=== PATIENT | male | born 1940 | race African-American/Black ===

== ENCOUNTER 2016-07-24 08:11 | Outpatient (CLI) | payer MEDICARE ==
[2016-07-24 12:23] LABS: Hemoglobin A1c 6.7 % (4.0-6.0)
== END 2016-07-24 08:12 ==
LOC: NAVSJIPCSP 08:11
PROVIDERS: ATTEND Internal Medicine
DX: E11.29 Type 2 diabetes mellitus with other diabetic kidney complication (principal); I11.9 Hypertensive heart disease without heart failure; Z79.899 Other long term (current) drug therapy
CPT/HCPCS: 36415; 80061; 83036

== ENCOUNTER 2016-11-04 07:52 | Outpatient (CLI) | payer MEDICARE ==
[2016-11-04 12:53] LABS: Anion Gap 18 mmol/L (10-20); BUN (Urea Nitrogen) 36 mg/dL (8.4-25.7); Calc. Creatinine Clearance 0 mL/min (70-130); Calcium 9.5 mg/dL (7.8-10.44); Carbon Dioxide 19 mmol/L (23-31); Cardiac Risk 2.7 (Less than 4.5); Chloride 109 mmol/L (98-107); Cholesterol 167 mg/dl (< 200 Desired); Estimated GFR-MDRD 52; Glucose 124 mg/dL (83-110); HDL Cholesterol 63 mg/dL (>60 Neg Risk); LDL Cholesterol, Calculated 87 mg/dL; Potassium 4.5 mmol/L (3.5-5.1); Sodium 141 mmol/L (136-145); Triglycerides 83 mg/dL (Less than 150)
[2016-11-04 13:20] LABS: Bilirubin Negative (Negative); Blood, Urine Negative (Negative); Clarity Clear (Clear); Glucose, Urine (Dipstick) Negative (Negative); Leukocyte Negative (Negative); Nitrite Negative (Negative); Protein, Urine (Dipstick) 30 mg/dL (Neg-Trace); Specific Gravity, Urine 1.015 (1.005-1.030); Urobilinogen 0.2 mg/dL (0.2-1.0); pH, Urine 5.5 (5.0-9.0)
[2016-11-04 14:11] LABS: Hemoglobin A1c 6.7 % (4.0-6.0)
[2016-11-04 22:09] LABS: Crystals/HPF RARE URIC ACID HPF (Negative); Squamous Epithelial 0-3 HPF (0-3)
== END 2016-11-04 07:53 ==
LOC: NAVSJIPCSP 07:52
PROVIDERS: ATTEND Urology
DX: Z12.5 Encounter for screening for malignant neoplasm of prostate (principal); C67.9 Malignant neoplasm of bladder, unspecified; N40.1 Benign prostatic hyperplasia with lower urinary tract symptoms; E78.5 Hyperlipidemia, unspecified; E11.29 Type 2 diabetes mellitus with other diabetic kidney complication
CPT/HCPCS: 36415; 80048; 80061; 81001; 83036; 87086; G0103

== ENCOUNTER 2017-02-04 08:44 | Outpatient (CLI) | payer MEDICARE ==
[2017-02-04 12:39] LABS: Hemoglobin A1c 6.7 % (4.0-6.0)
[2017-02-04 12:57] LABS: Anion Gap 17 mmol/L (10-20); BUN (Urea Nitrogen) 22 mg/dL (8.4-25.7); Calc. Creatinine Clearance 0 mL/min (70-130); Carbon Dioxide 23 mmol/L (23-31); Cardiac Risk 2.7 (Less than 4.5); Chloride 107 mmol/L (98-107); Cholesterol 155 mg/dl (< 200 Desired); Estimated GFR-MDRD 58; Glucose 136 mg/dL (83-110); HDL Cholesterol 57 mg/dL (>60 Neg Risk); LDL Cholesterol, Calculated 88 mg/dL; Potassium 5.1 mmol/L (3.5-5.1); Sodium 142 mmol/L (136-145); Triglycerides 52 mg/dL (Less than 150)
== END 2017-02-04 08:45 | disposition home or self-care (01) ==
LOC: NAVSJIPCSP 08:44
PROVIDERS: ATTEND Internal Medicine
DX: E11.29 Type 2 diabetes mellitus with other diabetic kidney complication (principal); N28.9 Disorder of kidney and ureter, unspecified; E78.5 Hyperlipidemia, unspecified; Z79.899 Other long term (current) drug therapy
CPT/HCPCS: 36415; 80048; 80061; 83036

== ENCOUNTER 2023-02-19 14:33 | Emergency (ER) | payer MEDICARE, OTHER | END 2023-02-19 14:55 | disposition home or self-care (01) | LOC: NAV ERS 14:33 | DX: L03.113 Cellulitis of right upper limb (principal); L03.312 Cellulitis of back [any part except buttock and flank]; D17.9 Benign lipomatous neoplasm, unspecified; I10 Essential (primary) hypertension; E11.9 Type 2 diabetes mellitus without complications | CPT/HCPCS: 87070; 87205; 99283 ==

== ENCOUNTER 2024-03-28 15:07 | Outpatient (CLI) | payer MEDICARE | END 2024-03-28 15:08 | disposition home or self-care (01) | LOC: NAV CT 15:07 | DX: M99.04 Segmental and somatic dysfunction of sacral region (principal); M54.50 Low back pain, unspecified; G89.29 Other chronic pain; M47.816 Spondylosis without myelopathy or radiculopathy, lumbar region; M51.369 Other intervertebral disc degeneration, lumbar region without mention of lumbar back pain or lower extremity pain; M48.061 Spinal stenosis, lumbar region without neurogenic claudication; M48.07 Spinal stenosis, lumbosacral region; M46.1 Sacroiliitis, not elsewhere classified; M16.0 Bilateral primary osteoarthritis of hip; M89.9 Disorder of bone, unspecified | CPT/HCPCS: 72131; 72170 ==

== ENCOUNTER 2024-05-07 15:51 | Emergency (ER) | payer MEDICARE ==
[2024-05-07] MEDS ORDERED: cloNIDine 0.1 MG TAB ONE (16:26)
== END 2024-05-07 17:33 | disposition home or self-care (01) ==
LOC: NAV ERS 15:51
DX: I10 Essential (primary) hypertension (principal)
CPT/HCPCS: 99283